=== PATIENT | female | born 2000 | race Caucasian/White ===

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

== ENCOUNTER → 2023-06-16 | Emergency (ER) | payer OTHER, SELFPAY ==
--- OUTSIDE RECORDS SUMMARY | 2023-06-16 07:50 | XMS REPORT | Continuity of Care Document ---
Author Name Unknown Address [address] [place] [address] [facility] thconnect Address [address] [place] [address] Care Team Providers Care Meeting/Event Planner Name Role Phone None, None Primary Care Physician HERO Dunaway Attending Clinician Unavailable SILVIO PLUNKETT Attending Clinician HARJINDER Killian Attending Clinician Unavailable Payers Payer Name Policy Type Policy Number Effective Date Expirati on Date Source AETNA CHOICE POS II [id number] 2005 00:00:00 [employer]ET[employer] O [id number] 2015 00:00:00 Problems Condition Name Condition Details Condition Category Status Onset Date Resolution Date Last Treatment Date Treating Clinician Comments Source No known active problems No known active problems Disease [facility] Allergies, Adverse Reactions, Alerts Allergy Name Allergy Type Status Severity Reaction(s) Onset Date Inactive Date Treating Clinician Comments Source NO KNOWN ALLERGIE S Drug Class Active [facility] Social History Social Habit Start Date Stop Date Quantity Comments Source Exposure to SARS-CoV-2 (event) 2021-08-16 00:00:00 2021-09-15 11:13:00 Not sure [facility] Tobacco use and exposure 2021-09-15 00:00:00 2021-09-15 00:00:00 Smokeless tobacco non-user [facility] Alcohol intake 2021-09-15 00:00:00 2021-09-15 00:00:00 Current drinker of alcohol (finding) [facility] Cigarette pack-years 2021-09-15 00:00:00 2021-09-15 00:00:00 [facility] Sex Assigned At 2000 00:00:00 2000 00:00:00 [facility] Smoking Status Start Date Stop Date Source Never smoked tobacco [facility] Medications Ordered Medication Name Filled Medication Name Start Date Stop Date Current Medication? Ordering Clinician Indication Dosage Frequency Signature (SIG) Comments Components Source No known medications 09-15 11:17: 42 No No known medication s [facility] Vital Signs Vital Name Observation Time Observation Value Comments S jordan Systolic blood pressure 2021-09-15 16:27:00 123 mm[Hg] [facility] Diastolic blood pressure 2021-09-15 16:27:00 86 mm[Hg] [facility] Heart rate 2021-09-15 16:27:00 80 /min [facility] Body temperature 2021-09-15 16:27:00 36.94 Rosemary [facility] Body height 2021-09-15 16:27:00 172.7 cm [facility] Body weight 2021-09-15 16:27:00 80.06 kg [facility] BMI 2021-09-15 16:27:00 26.84 kg/m2 [facility] Encounters Start Date/Time End Date/Time Encounter Type Admission Type Attending [facility] Care Facility Care Department Encounter ID Source 2021-11-01 15:33:52 Outpatient [facility] [id number] [facility] 2021-09-17 12:31:42 Outpatient [facility] [id number] [facility] 2021-09-15 10:54:29 Outpatient [facility] [id number] [facility] 2021-08-20 08:46:11 Outpatient [facility] [id number] [facility] 2021-08-19 14:05:28 Outpatient [facility] [id number] [facility] 2021-02-07 07:57:32 Emergency [facility] [id number] [facility] 2021-09-15 11:00:00 2021-09-15 12:17:22 Office Visit Hero [facility] [address] AND WOMENS [id number] [facility] 2019-10-30 16:00:00 2019-10-30 16:00:00 Outpatient SILVIO BUI [facility] [id number] [facility] 2019-06-09 12:30:00 2019-06-09 12:30:00 Outpatient SILVIO BUI [facility] [id number] [facility] 2018-11-29 08:30:00 2018-11-29 09:54:51 Outpatient HARJINDER UMAÑA [facility] [id number] [facility] 2018-11-22 14:50:00 2018-11-22 14:50:00 Outpatient SILVIO BUI [facility] [id number] [facility] Results Test Description Test Time Test Comments Results Result Co mments Source HCG Qualitative [id number] 15:29:27* Test Item Value Reference Range Interpretation Comme nts hCG Ur (test code = hCG Ur) Negative If the result is "Negative" in patients suspected to be , recommend retest with a sample obtained 48 to 72 hours later, or by ordering a quantitative assay. If the result is "Borderline" testing should be repeated in 48 to 72 hours. Lot # (test code = Lot #) [id number] Expiration Dt (test code = Expiration Dt) 01/10/2020 N Neg Control (test code = Neg Control) Negative Pos Control (test code = Pos Control) Positive Internal QC (test code = Internal QC) Acceptable HCG Qualitative [id number] 17:37:58* Test Item Value Reference Range Interpretation Comme nts hCG Ur (test code = hCG Ur) Negative If the result is "Negative" in patients suspected to be , recommend retest with a sample obtained 48 to 72 hours later, or by ordering a quantitative assay. If the result is "Borderline" testing should be repeated in 48 to 72 hours. Lot # (test code = Lot #) [id number] N Expiration Dt (test code = Expiration Dt) 11/10/2019 N Neg Control (test code = Neg Control) Negative Pos Control (test code = Pos Control) Positive Internal QC (test code = Internal QC) Acceptable
--- NOTE | 2023-06-16 08:50 | RAD REPORT ---
EXAM DESCRIPTION: RAD - Chest Pa And Lat (2 Views) - 06/16/2023 8:37 am CLINICAL HISTORY: PAIN COMPARISON: Chest Single View dated 09/15/2018; CHEST PA AND LAT 2 VIEW dated 08/24/2012 TECHNIQUE: PA and lateral views of the chest were obtained. FINDINGS: The lungs are clear. Heart size is normal and central vasculature is within normal limits. No pleural effusion or pneumothorax seen. No acute bony finding noted. IMPRESSION: No acute cardiopulmonary process.
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
[2023-06-16 09:25] VITALS: BP 108/74; TEMP 98; O2SAT 100
== END ==
LOC: ER 07:47
DX: S20.211A Contusion of right front wall of thorax, initial encounter (principal)
CPT/HCPCS: 71046; 99282

== ENCOUNTER 2023-07-18 11:09 | Emergency (ER) | payer OTHER ==
--- OUTSIDE RECORDS SUMMARY | 2023-07-18 11:11 | XMS REPORT | Continuity of Care Document ---
Author Name Unknown Address [address] [facility] [address] [id number] [facility] thconnect Address [address] [facility] [place] [address] Care Team Providers Care Wool Dyer Name Role Phone None, None Primary Care Physician HERO Dunaway Attending Clinician Unavailable SILVIO PLUNKETT Attending Clinician HARJINDER Killian Attending Clinician Unavailable Payers Payer Name Policy Type Policy Number Effective Date Expirati on Date Source AETNA CHOICE POS II [id number] 2005 00:00:00 [employer]ET[employer] HMO [id number] 2015 00:00:00 Problems Condition Name Condition Details Condition Category Status Onset Date Resolution Date Last Treatment Date Treating Clinician Comments Source No known active problems No known active problems Disease [facility] Allergies, Adverse Reactions, Alerts Allergy Name Allergy Type Status Severity Reaction(s) Onset Date Inactive Date Treating Clinician Comments Source NO KNOWN ALLERGIE S Drug Class Active [facility] Social History Social Habit Start Date Stop Date Quantity Comments Source Exposure to SARS-CoV-2 (event) 2021-08-16 00:00:00 2021-09-15 11:13:00 Not sure [facility] Tobacco use and exposure 2021-09-15 00:00:00 2021-09-15 00:00:00 Smokeless tobacco non-user [facility] Alcohol intake 2021-09-15 00:00:00 2021-09-15 00:00:00 Current drinker of alcohol (finding) [facility] Cigarette pack-years 2021-09-15 00:00:00 2021-09-15 00:00:00 [facility] Sex Assigned At 2000 00:00:2000 00:00:00 [facility] Smoking Status Start Date Stop Date Source Never smoked tobacco [facility] Medications Ordered Medication Name Filled Medication Name Start Date Stop Date Current Medication? Ordering Clinician Indication Dosage Frequency Signature (SIG) Comments Components Source No known medications 09-15 11:17: 42 No No known medication s [facility] Vital Signs Vital Name Observation Time Observation Value Comments S our Systolic blood pressure 2021-09-15 16:27:00 123 mm[Hg] [facility] Diastolic blood pressure 2021-09-15 16:27:00 86 mm[Hg] [facility] Heart rate 2021-09-15 16:27:00 80 /min [facility] Body temperature 2021-09-15 16:27:00 36.94 Rosemary [facility] Body height 2021-09-15 16:27:00 172.7 cm [facility] Body weight 2021-09-15 16:27:00 80.06 kg [facility] BMI 2021-09-15 16:27:00 26.84 kg/m2 [facility] Encounters Start Date/Time End Date/Time Encounter Type Admission Type Attending [facility] Facility Care Department Encounter ID Source 2021-11-01 15:33:[address] [facility] [id number] [facility] 2021-09-17 12:31:[address] [facility] [id number] [facility] 2021-09-15 10:54:[address] [facility] [id number] [facility] 2021-08-20 08:46:[address] [facility] [id number] [facility] 2021-08-19 14:05:[address] [facility] [id number] [facility] 2021-02-07 07:57:32 Emergency [facility] [id number] [facility] 2021-09-15 11:00:00 2021-09-15 12:17:22 Office Visit Hero Elizabeth [facility] [address] AND WOM[facility] [id number] [facility] 2019-10-30 16:00:00 2019-10-30 16:00:00 Outpatient SILVIO BUI [facility] [id number] [facility] 2019-06-09 12:30:00 2019-06-09 12:30:00 Outpatient SILVIO BUI [facility] [id number] [facility] 2018-11-29 08:30:00 2018-11-29 09:54:51 Outpatient HARJINDER UMAÑA [facility] [id number] [facility] 2018-11-22 14:50:00 2018-11-22 14:50:00 Outpatient SILVIO BUI [facility] [id number] [facility] Results Test Description Test Time Test Comments Results Result Co mments Source HCG Qualitative [id number] 15:29:27* Test Item Value Reference Range Interpretation [...] Lot # (test code = Lot #) [id number] Expiration Dt (test code = Expiration Dt) 01/10/2020 N Neg Control (test code = Neg Control) Negative Pos Control (test code = Pos Control) Positive Internal QC (test code = Internal QC) Acceptable HCG Qualitative [id number] 17:37:58* Test Item Value Reference Range Interpretation [...] Lot # (test code = Lot #) [id number] Expiration Dt (test code = Expiration Dt) 11/10/2019 N Neg Control (test code = Neg Control) Negative Pos Control (test code = Pos Control) Positive Internal QC (test code = Internal QC) Acceptable
[2023-07-18 11:35] LABS: Absolute Lymphocytes (CBC) 0.3 K/uL (0.7-4.9); Absolute Monocytes 0.4 K/uL (0.1-1.3); Absolute Neutrophil 5.3 K/uL (1.8-8.0); Basophils % 0.3 % (0-1.3); Eosinophils % 0.1 % (0-4.4); Hematocrit 40.9 % (36.0-45.0); Hemoglobin 14.4 g/dL (12.0-15.0); Lymphocytes % 5.3 % (15.3-44.8); MCH 36.1 pg (27.0-35.0); MCHC 35.1 g/dL (32.0-36.0); MCV 102.9 fL (80-100); MPV 8.1 fL (7.6-11.3); Monocytes % 6.7 % (3.3-12.3); Neutrophils % 87.6 % (41.7-73.7); Platelets 153 thou/uL (152-406); RBC Red Blood Cell Count 3.97 M/uL (3.86-4.86); Red Cell Distribution Width 12.6 % (12.1-15.2)
[2023-07-18] MEDS ORDERED: ONDANSETRON 4 MG/2 ML VIAL ONE (11:36)
[2023-07-18] MEDS ORDERED: NA CHLORIDE 0.9% 1,000 ML ONE (11:36)
[2023-07-18 11:52] LABS: Anion Gap 17.7 mEq/L (5.0-15.0); Magnesium 1.7 mg/dL (1.6-2.4); Potassium 3.7 mEq/L (3.5-5.1)
[2023-07-18 12:18] LABS: Blood Morphology Comment NOT SEEN (NOT SEEN); Platelet Estimate ADEQ; White Blood Cell Scan OK (OK)
[2023-07-18 12:25] LABS: Specific Gravity 1.026 (1.005-1.030)
[2023-07-18 12:33] LABS: Specific Gravity 1.026 (1.005-1.030); Sqamous Epithelial <5 /HPF (None Seen); Urine Bacteria <20 /HPF (<20); Urine Bilirubin NEGATIVE (Negative); Urine Blood Negative (Negative); Urine Clarity Turbid (Clear); Urine Color Yellow (Yellow); Urine Culture Reflex Order NOT NEEDED; Urine Glucose NEGATIVE (Negative); Urine Ketones 4+ (Over) (Negative); Urine Microscopic Reflex YN ORDER UMIC; Urine Mucus Slight /HPF (None Seen); Urine Nitrite NEGATIVE (Negative); Urine Protein 3+ (Negative); Urine RBC <5 /HPF (None Seen); Urine Urobilinogen 1+ (Normal); Urine WBC <5 /HPF (<5)
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
--- NOTE | 2023-07-18 13:50 | EDPHYS ---
Physician Documentation [facility] Name: Gin Corbett Age: 23 yrs Sex: Female : 2000 Arrival Date: 07/18/2023 Time: 11:09 Bed 19 Private MD: Wili Lopez B ED Physician Karthik Pfeiffer HPI: 07/17 15:43 This 23 yrs old Female presents to ER via Wheelchair with complaints of Near Syncope. kb 15:43 Patient is a 23-year-old female who presents for near syncopal episode after running a kb 5K this morning. States she is not normally a runner and did not train to run a 5K. States she tried to hydrate afterwards but became nauseous and started vomiting. Denies abdominal pain, fever. TOP LOADER: 12:22 LMP 07/18/2023, unknown tl4 Historical: - Allergies: 11:15 Iodine; nj1 - Home Meds: 12:18 None [Active]; tl4 - PMHx: 11:16 Anxiety; nj1 - PSHx: 11:15 None; nj1 - Immunization history:: Client reports receiving the 2nd dose of the Covid vaccine. - Infectious Disease History:: Denies. - Social history:: Smoking status: Patient denies any tobacco usage or history of. ROS: 15:42 Constitutional: As per HPI kb Exam: 15:42 Constitutional: This is a well developed, well nourished patient who is awake, alert, kb and in no acute distress. Head/Face: Normocephalic, atraumatic. Eyes: Pupils equal round and reactive to light, extra-ocular motions intact. Lids and lashes normal. Conjunctiva and sclera are non-icteric and not injected. Cornea within normal limits. Periorbital areas with no swelling, redness, or edema. ENT: Moist Mucous membranes Cardiovascular: Regular rate Respiratory: Respirations even and unlabored. No increased work of breathing. Talking in full sentences Abdomen/GI: Soft, non-tender. No distention Skin: Warm, dry with normal turgor. Normal color. MS/ Extremity: Pulses equal, no cyanosis. Neurovascular intact. Full, normal range of motion. Neuro: Awake and alert, GCS 15, oriented to person, place, time, and situation. Moves all extremities. Normal gait. Vital Signs: 11:13 BP 99 / 84; Pulse 111; Resp 16; Temp 98.4; Pulse Ox 100% ; Weight 46.72 kg; Height 5 nj1 ft. 8 in. ; 12:18 BP 112 / 84; Pulse 83; Resp 12; Pulse Ox 100% on R/A; Pain 0/10; tl4 13:30 BP 102 / 69; Pulse 76; Resp 14; Pulse Ox 99% on R/A; tl4 14:00 BP 111 / 79; Pulse 69; Resp 16; Temp 98.1(O); Pulse Ox 99% on R/A; Pain 0/10; tl4 11:13 Body Mass Index 15.66 (46.72 kg, 172.72 cm) nj1 12:18 Pain Scale: Adult tl4 14:00 Pain Scale: Adult tl4 [place] Coma Score: 12:21 Eye Response: spontaneous(4). Motor Response: obeys commands(6). Verbal Response: tl4 oriented(5). Total: 15. MDM: 11:14 Patient medically screened. kb 15:42 Differential Diagnosis: cardiac arrhythmia, idiopathic syncope, vasovagal episode, kb dehydration, abnormal electrolytes. Data reviewed: vital signs, nurses notes. Counseling: I had a detailed discussion with the patient and/or guardian regarding the historical points, exam findings, and any diagnostic results supporting the discharge/admit diagnosis, lab results, the need for outpatient follow up, a family practitioner, to return to the emergency department if symptoms worsen or persist or if there are any questions or concerns that arise at home. Response to treatment: the patient's symptoms have markedly improved after treatment. 07/17 11:16 Order name: Basic Metabolic Panel; Complete Time: 11:55 kb 07/17 11:16 Order name: CBC with Diff; Complete Time: 12:20 kb 07/17 11:16 Order name: Magnesium; Complete Time: 11:55 kb 07/17 11:16 Order name: Test, Urine; Complete Time: 12:26 kb 07/17 11:16 Order name: Urinalysis w/ reflexes; Complete Time: 12:40 kb 07/17 11:16 Order name: CPK; Complete Time: 11:55 kb 07/17 11:38 Order name: CBC Smear Scan; Complete Time: 12:20 EDMS 07/17 11:16 Order name: EKG; Complete Time: 11:17 kb 07/17 13:17 Order name: EKG; Complete Time: 13:18 kb 07/17 11:16 Order name: Cardiac monitoring; Complete Time: 11:30 kb 07/17 11:16 Order name: EKG - Nurse/Tech; Complete Time: 11:42 kb 07/17 11:16 Order name: IV Saline Lock; Complete Time: 11:30 kb 07/17 11:16 Order name: Labs collected and sent; Complete Time: 11:30 kb 07/17 13:17 Order name: EKG - Nurse/Tech; Complete Time: 13:40 kb Administered Medications: 11:42 Drug: NS 0.9% IV 1000 ml IV at 1000 ml once Route: IV; Rate: 1000 ml; Site: right hb antecubital; 13:30 Follow up: Response: No adverse reaction; IV Status: Completed infusion; IV Intake: tl4 1000ml 11:42 Drug: Ondansetron IVP 4 mg IVP once; over 2 minutes Route: IVP; Site: right antecubital;hb 13:29 Follow up: Response: No adverse reaction tl4 Disposition Summary: 07/18/23 13:49 Discharge Ordered Notes: Location: Home kb Condition: Stable kb Diagnosis - Syncope Near kb Followup: kb - With: Emergency Department - When: As needed - Reason: Worsening of condition Followup: kb - With: Private Physician - When: 2 - 3 days - Reason: Recheck today's complaints, Continuance of care, Re-evaluation by your physician Discharge Instructions: - Discharge Summary Sheet kb - Near-Syncope, [id number] kb Forms: - Medication Reconciliation Form kb - Thank You Letter kb - Antibiotic Education kb - Prescription Opioid Use kb - Patient Portal Instructions kb - Leadership Thank You Letter kb Signatures: Dispatcher [employer] Nidhi Dixon, EDYTA FLOREZP-Kandy Brown RN FREDDY Linda Bear RN RN nj1 Ajith Muñoz RN RN tl4 Corrections: (The following items were deleted from the chart) 11:16 11:15 Allergies: No Known Allergies; nj1 nj1 11:16 11:15 PMHx: None; nj1 nj1
[2023-07-18 17:19] VITALS: BP 111/79; TEMP 97.6; O2SAT 100
--- NOTE | 2023-07-19 12:43 | EKG ---
Test Date: 2023-07-18 Test Time: 11:45:38 Computational Geneticist: DAWIT MEASUREMENT RESULTS: Intervals: Rate: 72 LA: 110 QRSD: 76 QT: 378 QTc: 413 Tina: P: 63 LA: 110 QRS: 82 T: 74 INTERPRETIVE STATEMENTS: Normal sinus rhythm Otherwise normal ECG Electronically Signed On 07-19-23 12:40:54 CDT by Isra Arteaga
--- NOTE | 2023-07-19 12:43 | EKG ---
Test Date: 2023-07-18 Test Time: 13:38:08 Automatic Silk Screen Printer: TL MEASUREMENT RESULTS: Intervals: Rate: 75 NH: 126 QRSD: 76 QT: 392 QTc: 437 [place]: P: 46 NH: 126 QRS: 45 T: 45 INTERPRETIVE STATEMENTS: Normal sinus rhythm Low voltage QRS Borderline ECG Compared to ECG 07/18/2023 11:45:38 Low QRS voltage now present Electronically Signed On 07-19-23 12:40:32 CDT by Isra Arteaga
== END 2023-07-18 14:01 | disposition home or self-care (01) ==
LOC: ER 11:09
DX: R55 Syncope and collapse (principal); Z91.048 Other nonmedicinal substance allergy status
CPT/HCPCS: 96361; 93005 ×2; 85025; 81001; 80048; 36415; 83735; 82550; 81025; 96374; 99285; J2405; J7030

== ENCOUNTER 2023-12-27 14:31 | Emergency (ER) | payer OTHER ==
--- OUTSIDE RECORDS SUMMARY | 2023-12-27 14:33 | XMS REPORT | Continuity of Care Document ---
Author Name Unknown Address [address] [facility] [address] [facility] [address] [place] [id number] [facility] thconnect Address [address] [place] [address] Care Team Providers Care Rotary Drum Dyer Name Role Phone None, None Primary Care Physician HERO Dunaway Attending Clinician Unavailable SILVIO PLUNKETT Attending Clinician HARJINDER Killian Attending Clinician Unavailable Payers Payer Name Policy Type Policy Number Effective Date Expirati on Date Source AETNA CHOICE POS II [id number] 2005 00:00:00 [employer]ET[employer] HMO [id number] 2015 00:00:00 Problems Condition Name Condition Details Condition Category Status Onset Date Resolution Date Last Treatment Date Treating Clinician Comments Source No known active problems No known active problems Disease [facility] Allergies, Adverse Reactions, Alerts Allergy Name Allergy Type Status Severity Reaction(s) Onset Date Inactive Date Treating Clinician Comments Source NO KNOWN ALLERGIE S Drug Class Active [facility] Social History Social Habit Start Date Stop Date Quantity Comments Source Exposure to SARS-CoV-2 (event) 2021-08-16 00:00:00 2021-09-15 11:13:00 Not sure [facility] Tobacco use and exposure 2021-09-15 00:00:00 2021-09-15 00:00:00 Smokeless tobacco non-user [facility] Alcohol intake 2021-09-15 00:00:00 2021-09-15 00:00:00 Current drinker of alcohol (finding) [facility] Cigarette pack-years 2021-09-15 00:00:00 2021-09-15 00:00:00 [facility] Sex Assigned At 2000 00:00:00 2000 00:00:00 [facility] Smoking Status Start Date Stop Date Source Never smoked tobacco [facility] Medications Ordered Medication Name Filled Medication Name Start Date Stop Date Current Medication? Ordering Clinician Indication Dosage Frequency Signature (SIG) Comments Components Source No known medications 09-15 11:17: 42 No No known medication s [facility] Vital Signs Vital Name Observation Time Observation Value Comments S our Systolic blood pressure 2021-09-15 16:27:00 123 mm[Hg] [facility] Diastolic blood pressure 2021-09-15 16:27:00 86 mm[Hg] [facility] Heart rate 2021-09-15 16:27:00 80 /min [facility] Body temperature 2021-09-15 16:27:00 36.94 Rosemary [facility] Body height 2021-09-15 16:27:00 172.7 cm [facility] Body weight 2021-09-15 16:27:00 80.06 kg [facility] BMI 2021-09-15 16:27:00 26.84 kg/m2 [facility] Encounters Start Date/Time End Date/Time Encounter Type Admission Type Attending [facility] Facility Care Department Encounter ID Source 2021-11-01 15:33:52 Outpatient HERO ELIZABETH [facility] [id number] [facility] 2021-09-17 12:31:42 Outpatient HERO ELIZABETH [facility] [id number] [facility] 2021-09-15 10:54:29 Outpatient HERO ELIZABETH [facility] [id number] [facility] 2021-08-20 08:46:11 Outpatient HERO ELIZABETH [facility] [id number] [facility] 2021-08-19 14:05:28 Outpatient [facility] [id number] [facility] 2021-02-07 07:57:32 Emergency [facility] [id number] [facility] 2021-09-15 11:00:00 2021-09-15 12:17:22 Office Visit Hero Elizabeth [facility] [address] AND WOMENS [id number] [facility] 2019-10-30 16:00:00 2019-10-30 16:00:00 Outpatient SILVIO BUI [facility] [id number] [facility] 2019-06-09 12:30:00 2019-06-09 12:30:00 Outpatient SILVIO BUI [facility] [id number] [facility] 2018-11-29 08:30:00 2018-11-29 09:54:51 Outpatient HARJINDER UMAÑA [facility] [id number] [facility] 2018-11-22 14:50:00 2018-11-22 14:50:00 Outpatient SILVIO BUI [facility] [id number] [facility] Results Test Description Test Time Test Comments Results Result Co mments Source HCG Qualitative [id number] 15:29:27* Test Item Value Reference Range Interpretation [...] Lot # (test code = Lot #) [id number] N Expiration Dt (test code = Expiration Dt) 01/10/2020 N Neg Control (test code = Neg Control) Negative Pos Control (test code = Pos Control) Positive Internal QC (test code = Internal QC) Acceptable HCG Qualitative [id number] 17:37:58* Test Item Value Reference Range Interpretation [...] Lot # (test code = Lot #) [id number] N Expiration Dt (test code = Expiration Dt) 11/10/2019 N Neg Control (test code = Neg Control) Negative Pos Control (test code = Pos Control) Positive Internal QC (test code = Internal QC) Acceptable
[2023-12-27] MEDS ORDERED: ONDANSETRON 4 MG/2 ML VIAL ONE (15:09)
[2023-12-27] MEDS ORDERED: NA CHLORIDE 0.9% 1,000 ML ONE ×2 (15:10→16:59)
[2023-12-27] MEDS ORDERED: FENTANYL CITR 100 MCG/2 ML ONE ×2 (15:10→16:59)
[2023-12-27 15:44] LABS: Absolute Basophils 0.1 K/uL (0-0.5); Absolute Eosinophils 0.1 K/uL (0-0.5); Absolute Lymphocytes (CBC) 1.3 K/uL (0.7-4.9); Absolute Monocytes 0.8 K/uL (0.1-1.3); Absolute Neutrophil 4.8 K/uL (1.8-8.0); Basophils % 1.7 % (0-1.3); Eosinophils % 1.1 % (0-4.4); Hematocrit 29.6 % (36.0-45.0); Hemoglobin 10.1 g/dL (12.0-15.0); MCH 36.8 pg (27.0-35.0); MCHC 34.2 g/dL (32.0-36.0); MCV 107.6 fL (80-100); MPV 8.8 fL (7.6-11.3); Monocytes % 10.9 % (3.3-12.3); Neutrophils % 68.3 % (41.7-73.7); Platelets 114 thou/uL (152-406); RBC Red Blood Cell Count 2.75 M/uL (3.86-4.86); Red Cell Distribution Width 14.4 % (12.1-15.2)
[2023-12-27 15:51] LABS: PT Prothrombin Time 19.1 SECONDS (9.4-12.5); PTT, Activated Partial Thromb 33.2 SECONDS (24.3-36.9); Protime INR 1.73
[2023-12-27 16:00] LABS: Albumin 2.4 g/dL (3.4-5.0); Albumin/Globulin Ratio 0.6 (1.1-1.8); Anion Gap 10.6 mEq/L (5.0-15.0); Globulin 4.2 g/dL (2.3-3.5); Protein, Total 6.6 g/dL (6.4-8.2)
[2023-12-27 16:02] LABS: Potassium 2.6 mEq/L (3.5-5.1)
[2023-12-27 16:40] LABS: Specific Gravity 1.028 (1.005-1.030)
[2023-12-27 16:41] LABS: Specific Gravity 1.028 (1.005-1.030); Urine Bacteria <20 /HPF (<20); Urine Bilirubin 2+ (Negative); Urine Blood Negative (Negative); Urine Clarity Extremely Turbid (Clear); Urine Color Dark-Yellow (Yellow); Urine Crystals Unidentified Few /HPF (None Seen); Urine Culture Reflex Order REFLEXED; Urine Glucose TRACE (Negative); Urine Ketones TRACE (Negative); Urine Microscopic Reflex YN ORDER UMIC; Urine Mucus 4+ /HPF (None Seen); Urine Nitrite 2+ (Negative); Urine Protein 1+ (Negative); Urine Urobilinogen 4+ (Over) (Normal); Urine WBC >50 /HPF (<5); Urine WBC Clump Rare /HPF (None Seen); Urine Yeast (Budding) Trace /HPF (None Seen); Urine pH 7.5 (5.0-7.0)
[2023-12-27 17:40] LABS: White Blood Cell Scan OK (OK)
[2023-12-27 17:41] LABS: Blood Morphology Comment NOTED (NOT SEEN); Macrocytosis SLIGHT; Platelet Estimate DECR; Polychromasia SLIGHT
[2023-12-27] MEDS ORDERED: MORPHINE 4 MG/ML SYR ONE ×2 (18:15→21:58)
--- NOTE | 2023-12-27 18:29 | RAD REPORT ---
EXAMINATION: CT ABDOMEN AND PELVIS WITHOUT CONTRAST CLINICAL INDICATION: Female, 23 years old. [facility] MAIN ABD PAIN NO CONTRAST Bed Name: 17 TECHNIQUE: CT abdomen and pelvis was performed, without IV contrast, as per department protocol. Axia l, sagittal and coronal reconstructions were obtained. One or more of the following dose reduction techniques were used: Automated exposure control, adjustment of the mA and kV according to the patien t size, and iterative reconstruction. Unless otherwise specified, incidental findings do not require dedicated imaging follow-up. COMPARISON: CT chest 09/15/2018. FINDINGS: The lack of intravenous contrast limits the sensitivity of this exam for evaluation of solid visceral organs, vascular structures, and retroperitoneum. LOWER CHEST: The visualized lung bases are clear. LIVER: Subjective hepatomegaly. Diffuse parenchymal pronounced hypoattenuation, sparing the central a spects of the liver, suggesting severe steatosis with areas of focal fatty sparing. No focal lesion. Gallbladder is moderately distended. Nonspecific fluid throughout the retroperitoneum, may relate to third spacing, and limits evaluation for focal abnormalities of the pancreas. SPLEEN: Normal size. No focal lesion. PANCREAS: No mass, ductal dilation, or other focal findings ADRENALS: Normal; no mass. KIDNEYS AND URETERS: Normal size and contour. No hydronephrosis. URINARY BLADDER: Decompression of the urinary bladder limits evaluation. GASTROINTESTINAL TRACT: No evidence of bowel obstruction, or localized fluid collection. No free air. Moderate to large volume free ascites.. APPENDIX: Normal appendix. LYMPH NODES: No lymphadenopathy. MUSCULOSKELETAL: No acute or suspicious osseous abnormality. ADDITIONAL FINDINGS: IUD in place. IMPRESSION: Subjective hepatomegaly with nearly diffuse pronounced parenchymal hypoattenuation suggesting steatos is. Geographic central regions of fatty sparing. Moderate to large volume of free ascites. Nonspecific edema/fluid throughout the retroperitoneum, may relate to third spacing, please correlate for intravascular volume abnormalities.
[2023-12-27] MEDS ORDERED: CEFTRIAXONE 1000 MG/VIAL ONE (19:23)
[2023-12-27] MEDS ORDERED: POTASSIUM 25 MEQ EFFERV TAB ONE (19:23)
--- NOTE | 2023-12-27 20:06 | RAD REPORT ---
EXAMINATION: Abdomen Exam Limited CLINICAL HISTORY: HS MAIN N ABD PAIN Bed Name: 17 COMPARISON: CT abdomen pelvis of earlier the same day FINDINGS: Gallbladder: Moderate distention. Wall is not significantly thickened, up to 1 mm. Mild layering slud ge. No gallstones. Mild pericholecystic fluid, likely a component of more diffuse ascites. Positive sonographic Ortiz's sign. Bile ducts: No intrahepatic or extrahepatic biliary dilatation. Common bile duct measures 3 mm. Liver: Visualized portions of the liver demonstrate diffuse parenchymal echogenicity suggesting steat osis. Fluid: Mild to moderate free ascites. IMPRESSION: Moderate gallbladder distention with positive sonographic Ortiz sign, may suggest acute cholecystiti s in the appropriate clinical setting. Mild layering sludge. Diffuse hepatic parenchymal hyperechogenicity suggesting steatosis. Mild to moderate free ascites.
[2023-12-27 21:39] LABS: Hepatitis B Core IgM Nonreactive (Nonreactive); Hepatitis B surface AG Interp. Nonreactive (Nonreactive); Hepatitis C Virus Ab Nonreactive (Nonreactive)
[2023-12-27 21:40] LABS: HBsAG Nonreactive Report Report
[2023-12-27] MEDS ORDERED: METOCLOPRAMIDE 10 MG/2mL INJ ONE (21:57)
[2023-12-27] MEDS ORDERED: ALBUMIN HUMAN 25% 100 ML IV ONE (21:58)
[2023-12-27] MEDS ORDERED: METRONIDAZOLE 500mg IVPB 500 MG/100 ML BAG IV ONE (22:34)
--- NOTE | 2023-12-27 22:37 | EDPHYS ---
Physician Documentation [facility] Name: Gin Corbett Age: 23 yrs Sex: Female : 2000 Arrival Date: 12/27/2023 Time: 14:31 Bed 17 Private MD: ED Physician Edmundo Smalls HPI: 12/26 14:47 This 23 yrs old Female presents to ER via Ambulatory with complaints of abdominal pain. sb4 14:47 The patient presents with abdominal pain in the lower abdomen, in the right upper sb4 quadrant. Onset: The symptoms/episode began/occurred yesterday. The symptoms do not radiate. Associated signs and symptoms: Pertinent positives: nausea and vomiting, constipation. 14:54 Patient states that she thought she had what was a stomach bug last week with nausea sb4 and vomiting. States that that got better but slowly her abdomen has become more swollen. She states that she has still continued to have some nausea and vomiting as well as abdominal pain. Historical: - Allergies: 14:41 Iodine; cm10 - PMHx: 14:41 Anxiety; Elevated liver enzymes; cm10 - Immunization history:: Adult Immunizations up to date. - Infectious Disease History:: Denies. - Social history:: Smoking status: Reported history of juuling and/or vaping. ROS: 14:54 Constitutional: Negative for fever, chills, and weight loss, sb4 14:54 Abdomen/GI: Positive for abdominal pain, nausea and vomiting, abdominal distension, 14:54 All other systems are negative, Exam: 14:54 Constitutional: This is a well developed, well nourished patient who is awake, alert, sb4 and in no acute distress. Head/Face: Normocephalic, atraumatic. ENT: Mucous membranes moist. Cardiovascular: Regular rate and rhythm with a normal S1 and S2. Respiratory: Lungs have equal breath sounds bilaterally, clear to auscultation and percussion. No rales, rhonchi or wheezes noted. No increased work of breathing, no retractions or nasal flaring. Skin: Warm, dry with normal turgor. Normal color with no rashes, no lesions, and no evidence of cellulitis. 14:54 Eyes: Sclera: icterus, is present, 14:54 Abdomen/GI: Inspection: abdomen appears normal, Bowel sounds: normal, Palpation: soft, moderate abdominal tenderness, in the right upper quadrant, right lower quadrant and left lower quadrant, Vital Signs: 14:40 BP 106 / 84; Pulse 106; Resp 19; Temp 98.6; Pulse Ox 99% ; Weight 42.18 kg; Height 5 cm10 ft. 8 in. ; Pain 8/10; 15:01 BP 101 / 69; Pulse 81; Resp 17; Pulse Ox 99% on R/A; rs5 16:48 BP 110 / 74; Pulse 84; Resp 17; Pulse Ox 99% on R/A; rs5 19:15 BP 104 / 69; Pulse 77; Resp 18; Temp 98; Pulse Ox 100% on R/A; kj2 21:10 BP 98 / 72; Pulse 73; Resp 18; Pulse Ox 100% on R/A; kj2 22:46 BP 99 / 64; Pulse 92; Resp 16; Pulse Ox 100% on R/A; kj2 12/27 00:13 BP 100 / 71; Pulse 75; Pulse Ox 100% on R/A; kj2 00:48 BP 100 / 71; Pulse 84; Resp 18; Pulse Ox 100% on R/A; kj2 02:45 BP 100 / 69; Pulse 79; Resp 18; Temp 98; Pulse Ox 100% on R/A; kj2 12/26 14:40 Body Mass Index 14.14 (42.18 kg, 172.72 cm) cm10 12/26 14:40 Pain Scale: Adult cm10 MDM: 12/26 14:42 Patient medically screened. sb4 18:36 Post IV fluid administration reassessment for Sepsis: Client prescribed 30 mL/kg IVF. sb4 Sepsis focused reassessment complete. ED course: patient reports history of elevated LFTs, do not believe that tbili of 3 or lactate of 5.7 is secondary to infection. she does have a UTI. 30 cc/kg fluids administered as well as antibiotics after to blood cultures obtained. 19:01 ED course: Discussed lab and CT findings with patient. She states that was initially sb4 told she had some scarring in her liver and elevated LFTs about 5 months ago and the plan was just to monitor her symptoms. Her medical team believes that this is secondary to prior anorexia and alcohol abuse. 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 19:25 Data reviewed: vital signs, nurses notes, lab test result(s), radiologic studies, I sb4 have discussed the patient's presentation/case with the attending Emergency Department Physician;. Historians other than the Patient: Spouse/Significant Other: . Parent: mother. Counseling: I had a detailed discussion with the patient and/or guardian regarding the historical points, exam findings, and any diagnostic results supporting the discharge/admit diagnosis, lab results, radiology results. 22:32 Differential Diagnosis altered mental status, sepsis, flu. ED course: EXAMINATION: sp4 Abdomen Exam Limited CLINICAL HISTORY: [facility] MAIN N ABD PAIN Bed Name: 17 COMPARISON: CT abdomen pelvis of earlier the same day FINDINGS: Gallbladder: Moderate distention. Wall is not significantly thickened, up to 1 mm. Mild layering sludge. No gallstones. Mild pericholecystic fluid, likely a component of more diffuse ascites. Positive sonographic Ortiz's sign. Bile ducts: No intrahepatic or extrahepatic biliary dilatation. Common bile duct measures 3 mm. Liver: Visualized portions of the liver demonstrate diffuse parenchymal echogenicity suggesting steatosis. Fluid: Mild to moderate free ascites. IMPRESSION: Moderate gallbladder distention with positive sonographic Ortiz sign, may suggest acute cholecystitis in the appropriate clinical setting. Mild layering sludge. Diffuse hepatic parenchymal hyperechogenicity suggesting steatosis. Mild to moderate free ascites. Reported By: Azar Caba. 22:33 ED course: US - IMPRESSION: Moderate gallbladder distention with positive sonographic sp4 Ortiz sign, may suggest acute cholecystitis in the appropriate clinical setting. Mild layering sludge. Diffuse hepatic parenchymal hyperechogenicity suggesting steatosis. Mild to moderate free ascites.. ED course: EXAMINATION: CTABDOMEN AND PELVIS WITHOUT CONTRAST CLINICAL INDICATION: Female, 23 years old. [facility] MAIN ABD PAIN NO CONTRAST Bed Name: 17 TECHNIQUE: CT abdomen and pelvis was performed, without IV contrast, as per department protocol. Axial, sagittal and coronal reconstructions were obtained. One or more of the following dose reduction techniques were used: Automated exposure control, adjustment of the mA and kV according to the patient size, and iterative reconstruction. Unless otherwise specified, incidental findings do not require dedicated imaging follow-up. COMPARISON: CT chest 09/15/2018. FINDINGS: The lack of intravenous contrast limits the sensitivity of this exam for evaluation of solid visceral organs, vascular structures, and retroperitoneum. LOWER CHEST: The visualized lung bases are clear. LIVER: Subjective hepatomegaly. Diffuse parenchymal pronounced hypoattenuation, sparing the central aspects of the liver, suggesting severe steatosis with areas of focal fatty sparing. No focal lesion. Gallbladder is moderately distended. Nonspecific fluid throughout the retroperitoneum, may relate to third spacing, and limits evaluation for focal abnormalities of the pancreas. SPLEEN: Normal size. No focal lesion. PANCREAS: No mass, ductal dilation, or other focal findings ADRENALS: Normal; no mass. KIDNEYS AND URETERS: Normal size and contour. No hydronephrosis. URINARYBLADDER: Decompression of the urinary bladder limits evaluation. GASTROINTESTINAL TRACT: No evidence of bowel obstruction, or localized fluid collection. No free air. Moderate to large volume free ascites.. APPENDIX: Normal appendix. LYMPH NODES: No lymphadenopathy. MUSCULOSKELETAL: No acute or suspicious osseous abnormality. ADDITIONAL FINDINGS: IUD in place. IMPRESSION: Subjective hepatomegaly with nearly diffuse pronounced parenchymal hypoattenuation suggesting steatosis. Geographic central regions of fatty sparing. Moderate to large volume of free ascites. Nonspecific edema/fluid throughout the retroperitoneum, may relate to third spacing, please correlate for intravascular volume abnormalities. . 12/26 14:46 Order name: Blood Culture Adult (2) sb4 12/26 14:46 Order name: CBC with Diff; Complete Time: 17:42 [facility] 12/26 14:46 Order name: CMP; Complete Time: 16:03 4 12/26 14:46 Order name: Lactate w/ 2H reflex if indic.; Complete Time: 16:03 [facility] 12/26 14:46 Order name: Protime (+inr); Complete Time: 15:53 sb4 12/26 14:46 Order name: Ptt, Activated; Complete Time: 15:53 sb4 12/26 14:46 Order name: Urinalysis w/ reflexes; Complete Time: 16:43 sb4 12/26 14:46 Order name: Test, Urine; Complete Time: 16:40 sb4 12/26 14:46 Order name: Lipase; Complete Time: 16:03 4 12/26 16:45 Order name: Urine Culture EDID 12/26 17:41 Order name: CBC Smear Scan; Complete Time: 17:42 EDMS 12/26 17:43 Order name: Lactate w/ 2H reflex if indic.; Complete Time: 18:40 sb4 12/26 18:03 Order name: Ghost Lactate-NO COLLECT Timer; Complete Time: 18:10 EDMS 12/26 19:21 Order name: Hepatitis Panel; Complete Time: 22:16 sb4 12/26 20:40 Order name: Ghost Lactate-NO COLLECT Timer; Complete Time: 20:41 EDMS 12/26 16:02 Order name: CT Abd/Pelvis - Without Contrast; Complete Time: 18:31 sb4 12/26 19:17 Order name: Abdomen Limited US; Complete Time: 20:08 sb4 12/26 14:46 Order name: Cardiac monitoring; Complete Time: 15:44 sb4 12/26 14:46 Order name: IV Saline Lock - Large Bore; Complete Time: 15:44 sb4 12/26 14:46 Order name: Labs collected and sent; Complete Time: 15:44 sb4 12/26 14:46 Order name: O2 Per Protocol; Complete Time: 15:44 sb4 12/26 14:46 Order name: O2 Sat Monitoring; Complete Time: 15:44 sb4 12/26 14:46 Order name: Vital Signs; Complete Time: 15:44 sb4 Administered Medications: 14:55 Drug: Ondansetron IVP 4 mg IVP once; over 2 minutes Route: IVP; Site: right antecubital;rs5 15:22 Follow up: Response: No adverse reaction; Nausea is decreased rs5 15:44 Drug: NS 0.9% IV 1000 ml IV at 1 bolus Per protocol; 1000 mL bolus Route: IV; Rate: 1 rs5 bolus; Site: right antecubital; 16:56 Follow up: Response: No adverse reaction; IV Status: Completed infusion rs5 15:44 Drug: fentaNYL (PF) IVP 25 mcg IVP once Route: IVP; Site: right antecubital; rs5 16:01 Follow up: Response: No adverse reaction; Pain is decreased rs5 17:04 Drug: fentaNYL (PF) IVP 25 mcg IVP once Route: IVP; Site: right antecubital; rs5 19:14 Follow up: Response: No adverse reaction kj2 17:05 Drug: NS 0.9% IV 1000 ml IV at 1 bolus Per protocol; 1000 mL bolus Route: IV; Rate: 1 rs5 bolus; Site: right antecubital; 18:12 Drug: morphine IVP or IV 4 mg IVP once over 4 mins Route: IVP; Infused Over: 4 mins; rs5 Site: right antecubital; 19:14 Follow up: Response: No adverse reaction; Pain is decreased kj2 19:56 Drug: Rocephin IV 1 grams IV at calculated rate once; Given slow IV push per pharmacy kj2 instructions Route: IV; Rate: calculated rate; Site: right antecubital; 19:56 Drug: Potassium PO Effervescent Tablet 50 mEq PO once; dissolve in 4 ounces of water or kj2 juice Route: PO; 22:45 Follow up: Response: No adverse reaction kj2 22:23 Drug: Albumin IVPB 25 grams 100 ml IVPB once; (Note: Albumin 25% concentration) Volume: kj2 100 ml; Route: IVPB; Site: right antecubital; 22:44 Follow up: Response: No adverse reaction kj2 22:23 Drug: Albumin IVPB 25 grams 100 ml IVPB once; (Note: Albumin 25% concentration) Volume: kj2 100 ml; Route: IVPB; Site: right antecubital; 22:24 Drug: morphine IVP or IV 4 mg IVP once over 4 mins Route: IVP; Infused Over: 4 mins; kj2 Site: right antecubital; 22:45 Follow up: Response: No adverse reaction; Pain is decreased kj2 22:24 Drug: metoCLOPramide IVP 10 mg IVP once; over 1 to 2 minutes Route: IVP; Site: right kj2 antecubital; 22:44 Follow up: Response: No adverse reaction kj2 22:43 Drug: metroNIDAZOLE IVPB 500 mg 100 ml IVPB at 200 ml/hr once over 30 mins Volume: 100 kj2 ml; Route: IVPB; Rate: 200 ml/hr; Infused Over: 30 mins; Site: right antecubital; 23:32 Not Given (Physician Discretion): ns 0.45 % with kcl40 meq/l 1000 ml IV at 100 ml/hr ss once 12/27 00:00 Drug: NS 0.9% with KCl IV 20 mEq/L 1000 ml IV at 100 ml/hr continuous Route: IV; Rate: kj2 100 ml/hr; Site: right antecubital; 00:49 Drug: morphine IVP or IV 2 mg IVP once over 4 mins Route: IVP; Infused Over: 4 mins; kj2 Site: right antecubital; 02:33 Follow up: Response: No adverse reaction kj2 02:39 Follow up: Response: No adverse reaction; Pain is decreased kj2 02:50 Drug: morphine IVP or IV 4 mg IVP once over 4 mins Route: IVP; Infused Over: 4 mins; kj2 Site: right antecubital; 07:31 Follow up: Response: No adverse reaction; Medication Administered at Departure kj2 Disposition: 12/26 20:17 Co-signature as Attending Physician, Constanza Quintana MD I agree with the assessment and gb1 plan of care. I reviewed the patient's care provided by Advanced Practice Provider \T\ agree w/ the diagnosis \T\ care plan. I personally saw the pt \T\ performed a substantive portion of the visit, incldng all aspects of the (History/Exam/Medical Decision Making). Disposition Summary: 12/27/23 22:35 Transfer Ordered Notes: Transfer Location: [facility] sp4 Reason: Higher level of care sp4 Condition: Stable sp4 Problem: new sp4 Symptoms: have improved sp4 Accepting Physician: [facility] Attending MD (12/28/23 02:52) kj2 Diagnosis - Acute liver failure, acute hyperbilirubinemia, acute hypokalemia, distended sp4 gallbladder , acute cholecystitis , moderate ascites with abdominal distention Forms: - Medication Reconciliation Form sp4 - SBAR form sp4 Signatures: Dispatcher [employer] EDMS Carola Flynn RN RN ss Brown, Sophia, PA-C PAAbelC sb4 Сергей Aldana RN RN rs5 Edmundo Smalls MD MD sp4 Eunice Lopez RN RN cm10 Constanza Quintana MD MD gb1 Sanaz Brown RN RN kj2 Corrections: (The following items were deleted from the chart) 14:47 14:47 BLOOD CULTURE*+BA.LAB.BRZ ordered. EDMS EDMS 14:47 14:47 CBC+H.LAB.BRZ ordered. EDMS EDMS 14:47 14:47 COMPREHENSIVE METABOLIC PANEL+C.LAB.BRZ ordered. EDMS EDMS 14:47 14:47 LACTATE+C.LAB.BRZ ordered. EDMS EDMS 14:47 14:47 PROTIME (+INR)+COAG.LAB.BRZ ordered. EDMS EDMS 14:47 14:47 PTT, ACTIVATED+COAG.LAB.BRZ ordered. EDMS EDMS 14:47 14:47 Urinalysis+U.LAB.BRZ ordered. EDMS EDMS 14:47 14:47 Test, Urine+UC.LAB.BRZ ordered. EDMS EDMS 14:47 14:47 LIPASE+C.LAB.BRZ ordered. EDMS EDMS 16:02 16:02 Abdomen Pelvis Wo Con+CT.RAD.BRZ ordered. EDMS EDMS 12/27 02:52 12/26 22:35 [facility] Attending sp4 kj2
--- NOTE | 2023-12-27 22:37 | ER ---
Nurse's Notes [facility] Name: Gin Corbett Age: 23 yrs Sex: Female : 2000 Arrival Date: 12/27/2023 Time: 14:31 Bed 17 Private MD: Diagnosis: Acute liver failure, acute hyperbilirubinemia, acute hypokalemia, distended gallbladder , acute cholecystitis , moderate ascites with abdominal distention Presentation: 12/26 14:40 Chief complaint: Patient states: Right sided abdominal pain onset Wednesday. Pt rates the cm10 pain an 8/10 and describes the pain as sharp. Pt also reports vomiting. Pt has noted yellowing to her scleras. Coronavirus screen: Client denies travel out of the [place] in the last 14 days. At this time, the client does not indicate any symptoms associated with coronavirus-19. Ebola Screen: Patient denies travel to an Ebola-affected area in the 21 days before illness onset. No symptoms or risks identified at this time. Initial Sepsis Screen: Does the patient meet any 2 criteria? HR > 90 bpm. Does the patient have a suspected source of infection? No. Patient's initial sepsis screen is negative. Risk Assessment: Do you want to hurt yourself or someone else? Patient reports no desire to harm self or others. Onset of symptoms was December 27, 2023. 14:40 Method Of Arrival: Ambulatory cm10 14:40 Acuity: REYNALDO 3 cm10 Triage Assessment: 14:42 General: Appears in no apparent distress. comfortable, Behavior is calm, cooperative. cm10 Pain: Complains of pain in right upper quadrant and right lower quadrant Pain does not radiate. Pain currently is 8 out of 10 on a pain scale. Quality of pain is described as sharp. EENT: Sclera/Cornea Yellowing. Neuro: No deficits noted. Level of Consciousness is awake, alert, obeys commands, Oriented to person, place, time, situation, Appropriate for age. Respiratory: No deficits noted. Airway is patent Respiratory effort is even, unlabored, Respiratory pattern is regular, symmetrical. Historical: - Allergies: 14:41 Iodine; cm10 - PMHx: 14:41 Anxiety; Elevated liver enzymes; cm10 - Immunization history:: Adult Immunizations up to date. - Infectious Disease History:: Denies. - Social history:: Smoking status: Reported history of juuling and/or vaping. Screenin:45 [facility] ED Fall Risk Assessment (Adult) History of falling in the last 3 months, rs5 including since admission No falls in past 3 months (0 pts) Confusion or Disorientation No (0 pts) Intoxicated or Sedated No (0 pts) Impaired Gait No (0 pts) Mobility Assist Device Used No (0 pt) Altered Elimination No (0 pt) Score/Fall Risk Level 0 - 2 = Low Risk Oriented to surroundings, Maintained a safe environment. Abuse screen: Denies threats or abuse. Nutritional screening: No deficits noted. Tuberculosis screening: No symptoms or risk factors identified. Assessment: 14:45 General: Appears in no apparent distress. uncomfortable, Behavior is calm, cooperative. rs5 Pain: Complains of pain in abdomen Pain currently is 8 out of 10 on a pain scale. Quality of pain is described as aching, Is continuous. Neuro: Level of Consciousness is awake, alert, obeys commands, Oriented to person, place, time, situation. Cardiovascular: Patient's skin is warm and dry. Respiratory: Airway is patent Respiratory effort is even, unlabored, Respiratory pattern is regular, symmetrical. GI: Abdomen is round non-distended, Abd is soft and non tender X 4 quads. : No signs and/or symptoms were reported regarding the genitourinary system. EENT: No signs and/or symptoms were reported regarding the EENT system. Derm: Skin is intact, Skin is pink, warm \T\ dry. Musculoskeletal: Range of motion: intact in all extremities. 16:01 Reassessment: Patient and/or family updated on plan of care and expected duration. Pain rs5 level reassessed. Patient is alert, oriented x 3, equal unlabored respirations, skin warm/dry/pink. Patient states feeling better. 16:44 Pain: Complains of pain in abdomen Pain currently is 8 out of 10 on a pain scale. rs5 Quality of pain is described as aching, Is continuous. 16:44 Reassessment: Patient and/or family updated on plan of care and expected duration. Pain rs5 level reassessed. Patient is alert, oriented x 3, equal unlabored respirations, skin warm/dry/pink. 16:45 Reassessment: provider notified pt is experiencing pain . rs5 17:10 Reassessment: Patient and/or family updated on plan of care and expected duration. Pain rs5 level reassessed. Patient is alert, oriented x 3, equal unlabored respirations, skin warm/dry/pink. 18:01 Pain: Complains of pain in abdomen Pain currently is 8 out of 10 on a pain scale. rs5 Quality of pain is described as aching, Is continuous. 18:01 Reassessment: provider notified pt is experiencing pain. rs5 18:49 Reassessment: Patient and/or family updated on plan of care and expected duration. Pain rs5 level reassessed. Patient is alert, oriented x 3, equal unlabored respirations, skin warm/dry/pink. Patient denies pain at this time. Patient states feeling better. 19:15 Reassessment: Patient appears in no apparent distress at this time. Patient and/or kj2 family updated on plan of care and expected duration. Pain level reassessed. Patient is alert, oriented x 3, equal unlabored respirations, skin warm/dry/pink. 21:20 Reassessment: Patient appears in no apparent distress at this time. Patient and/or kj2 family updated on plan of care and expected duration. Pain level reassessed. Patient is alert, oriented x 3, equal unlabored respirations, skin warm/dry/pink. 12/27 00:13 Reassessment: Patient appears in no apparent distress at this time. Patient and/or kj2 family updated on plan of care and expected duration. Pain level reassessed. Patient is alert, oriented x 3, equal unlabored respirations, skin warm/dry/pink. 00:48 Reassessment: Patient appears in no apparent distress at this time. Patient and/or kj2 family updated on plan of care and expected duration. Pain level reassessed. Patient is alert, oriented x 3, equal unlabored respirations, skin warm/dry/pink. 01:59 Reassessment: Patient appears in no apparent distress at this time. Patient and/or kj2 family updated on plan of care and expected duration. Pain level reassessed. Patient is alert, oriented x 3, equal unlabored respirations, skin warm/dry/pink. [facility]EDDY Harris notified me that the bed is not available at this time and will call me back shortly. Charge nurse notified. Vital Signs: 12/26 14:40 BP 106 / 84; Pulse 106; Resp 19; Temp 98.6; Pulse Ox 99% ; Weight 42.18 kg; Height 5 cm10 ft. 8 in. ; Pain 8/10; 15:01 BP 101 / 69; Pulse 81; Resp 17; Pulse Ox 99% on R/A; rs5 16:48 BP 110 / 74; Pulse 84; Resp 17; Pulse Ox 99% on R/A; rs5 19:15 BP 104 / 69; Pulse 77; Resp 18; Temp 98; Pulse Ox 100% on R/A; kj2 21:10 BP 98 / 72; Pulse 73; Resp 18; Pulse Ox 100% on R/A; kj2 22:46 BP 99 / 64; Pulse 92; Resp 16; Pulse Ox 100% on R/A; kj2 12/27 00:13 BP 100 / 71; Pulse 75; Pulse Ox 100% on R/A; kj2 00:48 BP 100 / 71; Pulse 84; Resp 18; Pulse Ox 100% on R/A; kj2 02:45 BP 100 / 69; Pulse 79; Resp 18; Temp 98; Pulse Ox 100% on R/A; kj2 12/26 14:40 Body Mass Index 14.14 (42.18 kg, 172.72 cm) cm10 12/26 14:40 Pain Scale: Adult cm10 ED Course: 12/26 14:34 Patient arrived in ED. ra3 14:36 [facility] sb4 14:36 Constanza Quintana MD is Attending Physician. sb4 14:41 Triage completed. cm10 14:43 Arm band placed on Patient placed in an exam room, on a stretcher. cm10 14:45 Patient has correct armband on for positive identification. Placed in gown. Bed in low rs5 position. Call light in reach. Side rails up X2. 14:45 No provider procedures requiring assistance completed. rs5 15:06 Сергей Aldana, FREDDY is Primary Nurse. rs5 15:25 First set of blood cultures drawn by az. cc6 15:30 Inserted saline lock: 20 gauge in right antecubital area, using aseptic technique. cc6 Blood collected. Flushed with 10 mL NS. 16:02 Notified Nurse Practitioner and/or Physician Tank Cleaner of a critical lab result(s), K me1 2.6 and lactate 5.7. 16:03 Radiology exam delayed due to test not completed at this time. nj 17:37 CT Abd/Pelvis - Without Contrast In Process Unspecified. EDMS 19:15 Report received from FREDDY Rushing. kj2 19:54 Abdomen Limited US In Process Unspecified. EDMS 19:56 Hepatitis Panel Sent. kj2 20:08 Attending Physician role handed off by Constanza Quintana MD sp4 20:08 Edmundo Smalls MD is Attending Physician. sp4 20:59 Initiated transfer with Addi at [facility]. rv1 21:24 Doc to Doc with Hospitalist at [facility]. rv1 22:15 Doc to Doc with General Surgeon at [facility]. rv1 22:58 Win at the transfer center called to update that he will be handing the case over to rv1 Mellisa and that we are waiting for a bed to be cleaned. 12/27 00:06 Spoke to Vimal at the Transfer Center, bed is still not ready. rv1 02:50 Provided Education on: disease process. kj2 02:51 Patient transferred, IV remains in place. kj2 Administered Medications: 12/26 14:55 Drug: Ondansetron IVP 4 mg IVP once; over 2 minutes Route: IVP; Site: right antecubital;rs5 15:22 Follow up: Response: No adverse reaction; Nausea is decreased rs5 15:44 Drug: NS 0.9% IV 1000 ml IV at 1 bolus Per protocol; 1000 mL bolus Route: IV; Rate: 1 rs5 bolus; Site: right antecubital; 16:56 Follow up: Response: No adverse reaction; IV Status: Completed infusion rs5 15:44 Drug: fentaNYL (PF) IVP 25 mcg IVP once Route: IVP; Site: right antecubital; rs5 16:01 Follow up: Response: No adverse reaction; Pain is decreased rs5 17:04 Drug: fentaNYL (PF) IVP 25 mcg IVP once Route: IVP; Site: right antecubital; rs5 19:14 Follow up: Response: No adverse reaction kj2 17:05 Drug: NS 0.9% IV 1000 ml IV at 1 bolus Per protocol; 1000 mL bolus Route: IV; Rate: 1 rs5 bolus; Site: right antecubital; 18:12 Drug: morphine IVP or IV 4 mg IVP once over 4 mins Route: IVP; Infused Over: 4 mins; rs5 Site: right antecubital; 19:14 Follow up: Response: No adverse reaction; Pain is decreased kj2 19:56 Drug: Rocephin IV 1 grams IV at calculated rate once; Given slow IV push per pharmacy kj2 instructions Route: IV; Rate: calculated rate; Site: right antecubital; 19:56 Drug: Potassium PO Effervescent Tablet 50 mEq PO once; dissolve in 4 ounces of water or kj2 juice Route: PO; 22:45 Follow up: Response: No adverse reaction kj2 22:23 Drug: Albumin IVPB 25 grams 100 ml IVPB once; (Note: Albumin 25% concentration) Volume: kj2 100 ml; Route: IVPB; Site: right antecubital; 22:44 Follow up: Response: No adverse reaction kj2 22:23 Drug: Albumin IVPB 25 grams 100 ml IVPB once; (Note: Albumin 25% concentration) Volume: kj2 100 ml; Route: IVPB; Site: right antecubital; 22:24 Drug: morphine IVP or IV 4 mg IVP once over 4 mins Route: IVP; Infused Over: 4 mins; kj2 Site: right antecubital; 22:45 Follow up: Response: No adverse reaction; Pain is decreased kj2 22:24 Drug: metoCLOPramide IVP 10 mg IVP once; over 1 to 2 minutes Route: IVP; Site: right kj2 antecubital; 22:44 Follow up: Response: No adverse reaction kj2 22:43 Drug: metroNIDAZOLE IVPB 500 mg 100 ml IVPB at 200 ml/hr once over 30 mins Volume: 100 kj2 ml; Route: IVPB; Rate: 200 ml/hr; Infused Over: 30 mins; Site: right antecubital; 23:32 Not Given (Physician Discretion): ns 0.45 % with kcl40 meq/l 1000 ml IV at 100 ml/hr ss once 12/27 00:00 Drug: NS 0.9% with KCl IV 20 mEq/L 1000 ml IV at 100 ml/hr continuous Route: IV; Rate: kj2 100 ml/hr; Site: right antecubital; 00:49 Drug: morphine IVP or IV 2 mg IVP once over 4 mins Route: IVP; Infused Over: 4 mins; kj2 Site: right antecubital; 02:33 Follow up: Response: No adverse reaction kj2 02:39 Follow up: Response: No adverse reaction; Pain is decreased kj2 02:50 Drug: morphine IVP or IV 4 mg IVP once over 4 mins Route: IVP; Infused Over: 4 mins; kj2 Site: right antecubital; 07:31 Follow up: Response: No adverse reaction; Medication Administered at Departure kj2 Medication: 12/26 16:56 VIS not applicable for this client. rs5 Outcome: 22:35 ER care complete, transfer ordered by . sp4 12/27 02:50 Transferred by ground EMS [place] [facility]j2 Condition: stable Instructed on the need for transfer, Demonstrated understanding of 02:52 Patient left the ED. kj2 Signatures: Dispatcher [employer] EDMS Joe Brown Sophia, TESSIE PAGenna sb4 Bing Caicedo rv1 Сергей Aldana, RN RN rs5 Edmundo Smalls MD MD sp4 Eunice Lopez RN RN cm10 Sasha Meier RN RN me1 Sherry Mcdermott ra3 Sanaz Brown RN RN kj2 Dary Frank cc6 Carola Flynn RN ss Corrections: (The following items were deleted from the chart) 12/26 17:06 16:48 Reassessment: No changes from previously documented assessment. rs5 rs5 12/27 00:02 12/26 22:15 Doc to Doc with Hospitalist at [facility] rv1 rv1
[2023-12-27] MEDS ORDERED: NS KCL 20MEQ 1,000 ML IV ONE (23:50)
[2023-12-28] MEDS ORDERED: ALBUMIN HUMAN 25% 100 ML IV ONE (00:02)
[2023-12-28] MEDS ORDERED: MORPHINE 2 MG/ML SYR ONE (00:43)
[2023-12-28] MEDS ORDERED: MORPHINE 4 MG/ML SYR ONE (02:46)
[2023-12-28 03:18] VITALS: TEMP 98; O2SAT 100
[2023-12-28 03:22] VITALS: BP 100/71
== END 2023-12-28 02:52 | disposition short-term general hospital (02) ==
LOC: ER 14:31
DX: K72.90 Hepatic failure, unspecified without coma (principal); R18.8 Other ascites; E80.6 Other disorders of bilirubin metabolism; E87.6 Hypokalemia; K81.0 Acute cholecystitis; K82.8 Other specified diseases of gallbladder
CPT/HCPCS: 87040 ×2; 87088; 85025; 81001; 87086; 36415; 81025; 85610; 83605 ×2; 85730; 83690; 80053; 80074; 74176; 76705; J2765; J3010 ×2; J2270; J2405; P9047 ×2; J7030 ×2; J0696; J3480; 87077; 87186; 96361; 96374; 96375; 99285

== ENCOUNTER 2025-01-05 21:22 | Emergency (ER) | payer OTHER ==
[2025-01-05] MEDS ORDERED: NA CHLORIDE 0.9% 1,000 ML ONE (22:01)
[2025-01-05 22:07] LABS: Absolute Lymphocytes (CBC) 2.0 K/uL (0.7-4.9); Hematocrit 33.7 % (36.0-45.0); Hemoglobin 12.0 g/dL (12.0-15.0); MCH 31.6 pg (27.0-35.0); MCHC 35.6 g/dL (32.0-36.0); MCV 88.7 fL (80-100); MPV 7.6 fL (7.6-11.3); Nucleated RBC Absolute Count 0.0 (0-0); Nucleated Red Blood Cells % 0.2 % (0-0); RBC Red Blood Cell Count 3.80 M/uL (3.86-4.86); White Blood Count 4.90 thou/uL (4.3-10.9)
[2025-01-05 22:17] LABS: PT Prothrombin Time 13.4 SECONDS (10-13.0); Protime INR 1.19
[2025-01-05] MEDS ORDERED: KETOROLAC 30 MG/ML INJ ONE (22:24)
[2025-01-05 22:30] LABS: ALT/SGPT 56 U/L (13-56); AST/SGOT 47 U/L (15-37); Albumin 3.6 g/dL (3.4-5.0); Albumin/Globulin Ratio 1.2 (1.1-1.8); Alkaline Phosphatase 93 U/L (45-117); Anion Gap 9.1 mEq/L (5.0-15.0); BUN Blood Urea Nitrogen 13 mg/dL (7-18); Globulin 2.9 g/dL (2.3-3.5); Glucose Level 139 mg/dL (74-106); Magnesium 2.1 mg/dL (1.6-2.4); Potassium 3.1 mEq/L (3.5-5.1)
[2025-01-05 22:40] LABS: Bilirubin Indirect, Calculated 0.1 mg/dL (0.2-0.8); Troponin High Sensitivity < 3.0 pg/mL (<58.9)
--- NOTE | 2025-01-05 22:50 | RAD REPORT ---
Procedure: Chest Single View HISTORY: Syncope COMPARISON: 2023 FINDINGS: The lungs appear clear of acute infiltrate. No significant pleural effusion noted. The heart is normal size. IMPRESSION: No acute abnormality is displayed.
[2025-01-05] MEDS ORDERED: POTASSIUM 25 MEQ EFFERV TAB ONE (23:29)
[2025-01-05] MEDS ORDERED: LIDOCAINE 2% MPF 5 ML VIAL ONE (23:47)
--- NOTE | 2025-01-06 00:52 | RAD REPORT ---
PROCEDURE: CT Head, Maxillofacial and Cervical Spine Without Intravenous Contrast CLINICAL INDICATION: The patient is 24 years old and is Female; chin laceration from fall TECHNIQUE: Axial computed tomography images of the head/brain, face and cervical spine without intravenous contr ast. Sagittal and coronal reformatted images were created and reviewed. This CT exam was performed using one or more of the following dose reduction techniques: automated exposure control, adjustment of the mA and/or kV according to patient size, and/or use of iterative reconstruction technique. DLP: 1364 mGy*cm COMPARISON: None. FINDINGS: BRAIN: Unremarkable. No hemorrhage. No significant white matter disease. No edema. VENTRICLES: Unremarkable. No ventriculomegaly. SKULL: No acute fracture. SINUSES: Unremarkable as visualized. No acute sinusitis. MASTOID AIR CELLS: Unremarkable as visualized. No mastoid effusion. VERTEBRAE: Straightening of the cervical lordosis. No acute fracture. Normal alignment. DISCS/SPINAL CANAL/NEURAL FORAMINA: No acute findings. No spinal canal stenosis. SOFT TISSUES: Mild submental soft tissue swelling. IMPRESSION: 1. Mild submental soft tissue swelling. 2. Straightening of the cervical lordosis. Findings may be positional or due to muscle spasm. 3. No acute intracranial abnormality. 4. No acute cervical spine fracture or subluxation. 5. No acute facial fracture. Electronically signed by: Selvin Banks DO 01/05/2025 11:54 PM CDT RP 9 Due to temporary technical issues with the PACS/[employer] reporting system, reports are being bela d by the in-house radiologist without review as a courtesy to ensure prompt reporting the interpreting radiologist is fully responsible for the content of the report. Transcribed Date/Time: 01/06/2025 12:52 AM
--- NOTE | 2025-01-06 00:53 | RAD REPORT ---
PROCEDURE: CT Head, Maxillofacial and Cervical Spine Without Intravenous Contrast CLINICAL INDICATION: The patient is 24 years old and is Female; chin laceration from fall TECHNIQUE: Axial computed tomography images of the head/brain, face and cervical spine without intravenous contr ast. Sagittal and coronal reformatted images were created and reviewed. This CT exam was performed using one or more of the following dose reduction techniques: automated exposure control, adjustment of the mA and/or kV according to patient size, and/or use of iterative reconstruction technique. DLP: 1364 mGy*cm COMPARISON: None. FINDINGS: BRAIN: Unremarkable. No hemorrhage. No significant white matter disease. No edema. VENTRICLES: Unremarkable. No ventriculomegaly. SKULL: No acute fracture. SINUSES: Unremarkable as visualized. No acute sinusitis. MASTOID AIR CELLS: Unremarkable as visualized. No mastoid effusion. VERTEBRAE: Straightening of the cervical lordosis. No acute fracture. Normal alignment. DISCS/SPINAL CANAL/NEURAL FORAMINA: No acute findings. No spinal canal stenosis. SOFT TISSUES: Mild submental soft tissue swelling. IMPRESSION: 1. Mild submental soft tissue swelling. 2. Straightening of the cervical lordosis. Findings may be positional or due to muscle spasm. 3. No acute intracranial abnormality. 4. No acute cervical spine fracture or subluxation. 5. No acute facial fracture. Electronically signed by: Selvin Banks DO 01/05/2025 11:54 PM CDT RP 9 Due to temporary technical issues with the PACS/[employer] reporting system, reports are being bela d by the in-house radiologist without review as a courtesy to ensure prompt reporting the interpreting radiologist is fully responsible for the content of the report. Transcribed Date/Time: 01/06/2025 12:53 AM
--- NOTE | 2025-01-06 00:59 | ER ---
Nurse's Notes [facility] Name: Gin Corbett Age: 24 yrs Sex: Female : 2000 Arrival Date: 01/05/2025 Time: 21:22 Bed 17 Private MD: Diagnosis: Syncope Near;Laceration without foreign body of other part of head, initial encounter Presentation: 01/05 21:31 Chief complaint: Patient states: got up from sitting and was walking, had a near me1 syncopal episode and fell, hitting her chin on the floor. Laceration noted to chin. Pain 7/10. Coronavirus screen: Vaccine status: Patient reports receiving the 2nd dose of the covid vaccine. Ebola Screen: No symptoms or risks identified at this time. Initial Sepsis Screen: Does the patient meet any 2 criteria? No. Patient's initial sepsis screen is negative. Does the patient have a suspected source of infection? No. Patient's initial sepsis screen is negative. Risk Assessment: Do you want to hurt yourself or someone else? Patient reports no desire to harm self or others. Onset of symptoms was January 05, 2025 at 21:00. 21:31 Method Of Arrival: Carried me1 21:31 Acuity: REYNALDO 3 me1 01/06 01:23 Complicating Factors: There are no complicating factors for this patient. ICT MANAGERS: 01:22 unknown Historical: - Allergies: 01/05 21:33 Iodine; me1 - PMHx: 21:33 elevated liver enzymes; Cirrhosis of liver; Pancreatitis; me1 21:33 anorexia; me1 - PSHx: 21:33 None; me1 - Infectious Disease History:: Denies. - Social history:: Smoking status: Reported history of juuling and/or vaping. Screenin:05 [facility] ED Fall Risk Assessment (Adult) History of falling in the last 3 months, bm8 including since admission Yes- physiologic fall (2 pts) Confusion or Disorientation No (0 pts) Intoxicated or Sedated No (0 pts) Impaired Gait No (0 pts) Mobility Assist Device Used No (0 pt) Altered Elimination No (0 pt) Score/Fall Risk Level 0 - 2 = Low Risk Oriented to surroundings, Maintained a safe environment, Educated pt \T\ family on fall prevention, incl call for assistance when getting out of bed, Assessed \T\ reinforced patient's understanding of fall precautions, Hourly rounding (assess needs \T\ fall precautionary measures) done, Used ambulatory aids as needed (educated on \T\ assisted with), Used gait belt as appropriate. Abuse screen: Denies threats or abuse. Nutritional screening: No deficits noted. Tuberculosis screening: No symptoms or risk factors identified. Assessment: 23:05 General: Appears in no apparent distress. comfortable, Behavior is calm, cooperative, bm8 appropriate for age. Pain: Complains of pain in chin Pain currently is 6 out of 10 on a pain scale. Neuro: No deficits noted. Level of Consciousness is awake, alert, obeys commands, Oriented to person, place, time, situation, Appropriate for age. Cardiovascular: Denies chest pain, Capillary refill < 3 seconds in bilateral fingers Patient's skin is warm and dry. Respiratory: Airway is patent Respiratory effort is even, unlabored, Respiratory pattern is regular, symmetrical. GI: No signs and/or symptoms were reported involving the gastrointestinal system. : No signs and/or symptoms were reported regarding the genitourinary system. EENT: No signs and/or symptoms were reported regarding the EENT system. Derm: Wound noted chin Wound is 2 in laceration on underside of chin. Musculoskeletal: Circulation, motion, and sensation intact. Capillary refill Range of motion: intact in all extremities, Reports pain in postiorer neck and chin. 01/06 00:00 Injury Description: Laceration is clean, well approximated. zm 01:16 Reassessment: Patient appears in no apparent distress at this time. Patient and/or zm family updated on plan of care and expected duration. Pain level reassessed. Patient is alert, oriented x 3, equal unlabored respirations, skin warm/dry/pink. Patient denies pain at this time. Patient states feeling better. Vital Signs: 01/05 21:31 BP 91 / 54; Pulse 70; Resp 16; Temp 98.2; Pulse Ox 100% ; Weight 63.5 kg; Height 5 ft. me1 8 in. ; Pain 7/10; 23:05 BP 93 / 60; Pulse 76; Resp 16; Temp 98.2; Pulse Ox 100% ; Pain 7/10; bm8 23:35 BP 90 / 61 Supine; Pulse 83; Resp 18; Pulse Ox 99% on R/A; zm 23:37 BP 94 / 61 Sitting; Pulse 73; Resp 13; Pulse Ox 99% on R/A; zm 23:39 BP 103 / 69 Standing; Pulse 89; Resp 12; Pulse Ox 100% on R/A; zm 01/06 01:16 BP 96 / 55; Pulse 79; Resp 12; Temp 98.4; Pulse Ox 98% on R/A; zm 01/05 21:31 Body Mass Index 21.29 (63.50 kg, 172.72 cm) me1 01/05 21:31 Pain Scale: Adult me1 23:05 Pain Scale: Adult bm8 Tomasa Coma Score: 01/05 23:05 Eye Response: spontaneous(4). Motor Response: obeys commands(6). Verbal Response: bm8 oriented(5). Total: 15. 01/06 01:16 Eye Response: spontaneous(4). Motor Response: obeys commands(6). Verbal Response: zm oriented(5). Total: 15. ED Course: 01/05 21:30 Patient arrived in ED. me1 21:33 Triage completed. me1 21:33 Karthik Parr PA-C is PHCP. cp 21:33 Edmundo Smalls MD is Attending Physician. cp 21:33 Arm band placed on Patient placed in an exam room. me1 21:41 No provider procedures requiring assistance completed. Initial lab(s) drawn, by me, EKG bm8 done, by ED staff, reviewed by Karthik Parr PA-C. Inserted saline lock: 20 gauge in right antecubital area, using aseptic technique. Blood collected. Flushed with 10 mL NS. Patient maintains SpO2 saturation greater than 95% on room air. 21:53 Elly Lopez, RN is Primary Nurse. zm 22:17 XRAY Chest (1 view) In Process Unspecified. EDMS 22:59 CT Head C Spine In Process Unspecified. EDMS 22:59 CT Facial Bones W/O Con In Process Unspecified. EDMS 23:05 Patient has correct armband on for positive identification. Bed in low position. Call bm8 light in reach. Side rails up X 1. Adult w/ patient. Client placed on continuous cardiac and pulse oximetry monitoring. NIBP monitoring applied. director industrial on. Pulse ox on. NIBP on. Door closed. Noise minimized. Warm blanket given. Pillow given. Verbal reassurance given. Head of bed elevated. 01/06 00:57 Isra Arteaga MD is Referral Physician. aga 01:16 Provided Education on: post ER care. carmelita 01:16 Assist provider with laceration repair on chin using sutures. Set up tray. Performed by carmelita Parr PA-C Dressed with 4X4s, Patient tolerated well. IV discontinued, intact, bleeding controlled, No redness/swelling at site. Pressure dressing applied. Administered Medications: 01/05 22:09 Drug: NS 0.9% IV 1000 ml IV at 1000 ml once; to be given as a bolus over 60 minutes Route: IV; Rate: 1000 ml; Site: right antecubital; 01/06 01:28 Follow up: IV Status: Completed infusion; IV Intake: 1000ml 01:28 Follow up: Response: No adverse reaction 01/05 22:57 Drug: Ketorolac IVP 15 mg IVP once Route: IVP; Site: right antecubital; 8 01/06 01:27 Follow up: Response: No adverse reaction 01/05 23:42 Drug: Potassium PO Effervescent Tablet 50 mEq PO once; dissolve in 4 ounces of water or zm juice Route: PO; 01/06 01:27 Follow up: Response: No adverse reaction 01/05 23:54 Drug: Lidocaine Infiltration (2 %) 5 ml 5 ml Infiltration once; to bedside {Note: zm administered at bedside by physician.} Volume: 5 ml; Route: Infiltration; 23:56 Follow up: Response: No adverse reaction [facility] 01/06 01:08 Not Given (Physician Discretion): ns 0.9% 1000 ml IV at 1000 ml once; to be given as a zm bolus over 60 minutes. systolic >90 Medication: 01/05 23:05 VIS not applicable for this client. bm8 Intake: 01/06 01:28 IV: 1000ml; Total: 1000ml. Outcome: 00:59 Discharge ordered by . aga 01:16 Discharged to home ambulatory, with family, carmelita 01:16 Condition: stable 01:16 Discharge instructions given to patient, family, Instructed on discharge instructions, follow up and referral plans. safety practices, wound care, Demonstrated understanding of instructions, follow-up care, wound care, :28 Patient left the ED. Signatures: Dispatcher [employer] EDMS Karthik Parr PA-C PA-C cp Martinez, Zaina, RN RN Sahsa Meier RN RN sc1 Alf Mauro RN RN bm8 Corrections: (The following items were deleted from the chart) 01/05 21:34 21:33 PMHx: Anxiety; me1 me1
--- NOTE | 2025-01-06 01:00 | EDPHYS ---
Physician Documentation [facility] Name: Gin Corbett Age: 24 yrs Sex: Female : 2000 Arrival Date: 01/05/2025 Time: 21:22 Bed 17 Private MD: ED Physician Edmundo Smalls HPI: 01/05 21:45 This 24 yrs old Female presents to ER via Carried with complaints of Near Syncope, cp Laceration To Chin. 21:45 The patient has experienced near-syncope, almost passed out, felt dizzy, felt faint. cp 21:45 Onset: The symptoms/episode began/occurred just prior to arrival. Duration: This was a cp single episode. Context: occurred at home, occurred while the patient was walking, Just prior to the episode the patient experienced dizziness, weakness. Associated injury: Other: chin, laceration. 21:45 Current symptoms: jaw pain. 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 - Social history:: Smoking status: Reported history of juuling and/or vaping. ROS: 21:50 Constitutional: Negative for body aches, chills, fever, poor PO intake, cp 21:50 Eyes: Negative for injury, pain, redness, and discharge, cp 21:50 Cardiovascular: Negative for chest pain, 21:50 Respiratory: Negative for cough, shortness of breath, wheezing, 21:50 Abdomen/GI: Negative for abdominal pain, vomiting, diarrhea, constipation, 21:50 : Negative for vaginal bleeding, 21:50 Skin: Positive for laceration(s), of the chin, 21:50 Neuro: Positive for syncope, weakness, Negative for altered mental status, 21:50 All other systems are negative, Exam: 21:47 ECG was reviewed by the Attending Physician. cp 21:55 Constitutional: The patient appears in no acute distress, alert, awake, cp non-diaphoretic, non-toxic, well developed, well nourished, 21:55 Head/face: Noted is a laceration(s), that is linear, of the chin, swelling, that is cp mild, tenderness, that is moderate, 21:55 Eyes: Periorbital structures: appear normal, Pupils: equal, round, and reactive to light and accomodation, Extraocular movements: intact throughout, Conjunctiva: normal, no exudate, no injection, Sclera: no appreciated abnormality, Lids and lashes: appear normal, bilaterally, 21:55 ENT: External ear(s): are unremarkable, Nose: is normal, Mouth: Lips: moist, Oral mucosa: moist, Posterior pharynx: Airway: no evidence of obstruction, patent, 21:55 Neck: C-spine: vertebral tenderness, that is mild, crepitus, is not appreciated, 21:55 Chest/axilla: Inspection: normal, Palpation: is normal, no crepitus, no tenderness, 21:55 Cardiovascular: Rate: normal, Rhythm: regular, Edema: is not appreciated, JVD: is not appreciated, 21:55 Respiratory: the patient does not display signs of respiratory distress, Respirations: normal, no use of accessory muscles, no retractions, labored breathing, is not present, Breath sounds: are clear throughout, no decreased breath sounds, no stridor, no wheezing, 21:55 Abdomen/GI: Inspection: abdomen appears normal, Palpation: abdomen is soft and non-tender, in all quadrants, 21:55 Back: pain, is absent, ROM is normal, 21:55 Musculoskeletal/extremity: Exam is negative for decreased range of motion, deformity, injury, 21:55 Neuro: Orientation: to person, place \T\ time. Mentation: is normal, Cerebellar function: is grossly normal, Motor: moves all fours, strength is normal, Sensation: is normal, Vital Signs: 21:31 BP 91 / 54; Pulse 70; Resp 16; Temp 98.2; Pulse Ox 100% ; Weight 63.5 kg; Height 5 ft. me1 8 in. ; Pain 7/10; 23:05 BP 93 / 60; Pulse 76; Resp 16; Temp 98.2; Pulse Ox 100% ; Pain 7/10; bm8 23:35 BP 90 / 61 Supine; Pulse 83; Resp 18; Pulse Ox 99% on R/A; zm 23:37 BP 94 / 61 Sitting; Pulse 73; Resp 13; Pulse Ox 99% on R/A; 23:39 BP 103 / 69 Standing; Pulse 89; Resp 12; Pulse Ox 100% on R/A; 01/06 01:16 BP 96 / 55; Pulse 79; Resp 12; Temp 98.4; Pulse Ox 98% on R/A; 01/05 21:31 Body Mass Index 21.29 (63.50 kg, 172.72 cm) ut1 01/05 21:31 Pain Scale: Adult me1 23:05 Pain Scale: Adult bm8 Tomasa Coma Score: 01/05 23:05 Eye Response: spontaneous(4). Motor Response: obeys commands(6). Verbal Response: bm8 oriented(5). Total: 15. 01/06 01:16 Eye Response: spontaneous(4). Motor Response: obeys commands(6). Verbal Response: zm oriented(5). Total: 15. Laceration: 01:00 Wound Repair of 2.5cm ( 1.0in ) subcutaneous laceration to chin. Linear shaped.. Distal cp neuro/vascular/tendon intact. Anesthesia: Wound infiltrated with 5 mls of 2% lidocaine. Wound prep: Simple cleansing by me. Skin closed with 3 6-0 Prolene using interrupted sutures and sterile technique. Dressed with Bacitracin. Patient tolerated well. MDM: 01/05 21:33 Medical Screening Exam initiated 22:00 Differential Diagnosis: cardiac arrhythmia, drug effect, emotional response, GI bleed, cp , pseudo seizure, seizure, vasovagal episode. 01/06 00:59 Data reviewed: vital signs, nurses notes, lab test result(s), EKG, radiologic studies, cp CT scan, plain films, and as a result, I will discharge patient. 00:59 I considered the following discharge prescriptions or medication management in the emergency department Medications were administered in the Emergency Department. See JUN. 00:59 Counseling: I had a detailed discussion with the patient and/or guardian regarding the historical points, exam findings, and any diagnostic results supporting the discharge/admit diagnosis, lab results, radiology results, the need for outpatient follow up, a doctor of optometry, a family practitioner, to return to the emergency department if symptoms worsen or persist or if there are any questions or concerns that arise at home. Response to treatment: the patient's symptoms have mildly improved after treatment, and as a result, I will discharge patient. 01/05 21:49 Order name: Basic Metabolic Panel; Complete Time: 22:58 [facility] 01/05 22:58 Interpretation: Normal except: K 3.1; GLUC 139. 01/05 21:49 Order name: CBC with Diff; Complete Time: 22:14 [facility] 01/05 22:15 Interpretation: Normal except: RBC 3.80; HCT 33.7; EOSINOPHIL % 6.2. 01/05 21:49 Order name: LFT's; Complete Time: 22:58 [facility] 01/05 22:58 Interpretation: Normal except: AST 47; IBILI, CALC 0.1. 01/05 21:49 Order name: Magnesium; Complete Time: 22:58 [facility] 01/05 21:49 Order name: PT-INR; Complete Time: 22:33 [facility] 01/05 22:33 Interpretation: Normal except: PT 13.4. 01/05 21:49 Order name: Troponin HS; Complete Time: 22:58 [facility] 01/05 21:49 Order name: Test, Serum; Complete Time: 22:33 [facility] 01/05 21:49 Order name: XRAY Chest (1 view); Complete Time: 22:58 [facility] 01/05 22:35 Order name: CT Head C Spine 01/05 22:35 Order name: CT Facial Bones W/O Con 01/05 21:41 Order name: EKG - Nurse/Tech; Complete Time: 21:41 [facility] 01/05 21:49 Order name: Cardiac monitoring; Complete Time: 21:50 [facility] 01/05 21:49 Order name: IV Saline Lock; Complete Time: 21:50 [facility] 01/05 21:49 Order name: Labs collected and sent; Complete Time: 21:50 [facility] 01/05 21:49 Order name: O2 Per Protocol; Complete Time: 21:50 [facility] 01/05 21:49 Order name: O2 Sat Monitoring; Complete Time: 21:50 [facility] 01/05 23:21 Order name: Orthostatics; Complete Time: 23:42 01/05 23:44 Order name: Dressing - Wound; Complete Time: 23:53 01/05 23:44 Order name: Gloves, Sterile; Complete Time: 23:53 01/05 23:44 Order name: Setup Suture Tray; Complete Time: 23:53 cp EC/26 21:47 Rate is 63 beats/min. Rhythm is regular. [place] interval is normal. QRS interval is normal. cp QT interval is normal. T waves are Inverted in leads aVL, aVR. Interpreted by me. Reviewed by me. Administered Medications: 22:09 Drug: NS 0.9% IV 1000 ml IV at 1000 ml once; to be given as a bolus over 60 minutes zm Route: IV; Rate: 1000 ml; Site: right antecubital; 01/06 01:28 Follow up: IV Status: Completed infusion; IV Intake: 1000ml 01:28 Follow up: Response: No adverse reaction 01/05 22:57 Drug: Ketorolac IVP 15 mg IVP once Route: IVP; Site: right antecubital; [facility] 01/06 01:27 Follow up: Response: No adverse reaction 01/05 23:42 Drug: Potassium PO Effervescent Tablet 50 mEq PO once; dissolve in 4 ounces of water or zm juice Route: PO; 01/06 01:27 Follow up: Response: No adverse reaction 01/05 23:54 Drug: Lidocaine Infiltration (2 %) 5 ml 5 ml Infiltration once; to bedside {Note: zm administered at bedside by physician.} Volume: 5 ml; Route: Infiltration; 23:56 Follow up: Response: No adverse reaction [facility] 01/06 01:08 Not Given (Physician Discretion): ns 0.9% 1000 ml IV at 1000 ml once; to be given as a zm bolus over 60 minutes. systolic >90 Disposition: 05:03 Chart complete. cp 21:52 Co-signature as Attending Physician, Edmundo Smalls MD I agree with the assessment sp4 and plan of care. I reviewed the patient's care provided by the Advanced Practice Provider and agree with the diagnosis and treatment plan. Disposition Summary: 01/06/25 00:59 Discharge Ordered Notes: Location: Home cp Problem: new cp Symptoms: have improved cp Condition: Stable cp Diagnosis - Syncope Near cp - Laceration without foreign body of other part of head, initial encounter cp Followup: cp - With: Isra Arteaga MD - When: 5 - 6 days - Reason: Recheck today's complaints Discharge Instructions: - Discharge Summary Sheet cp - Facial Laceration cp - Near-Syncope cp - Sutured Wound Care cp Forms: - Medication Reconciliation Form cp - Antibiotic Education cp - Prescription Opioid Use cp - Patient Portal Instructions cp - Leadership Thank You Letter cp Signatures: Dispatcher [employer] EDKarthik Sanchez PA-C PA-C cp Martinez, Zaina, RN RN Edmundo Smalls MD MD sp4 Sasha Meier RN RN me1 Alf Mauro RN RN bm8 Corrections: (The following items were deleted from the chart) 01/05 21:34 21:33 PMHx: Anxiety; me1 me1 21:50 21:50 BASIC METABOLIC PANEL+C.LAB.BRZ ordered. EDMS EDMS 21:50 21:50 CBC+H.LAB.BRZ ordered. EDMS EDMS 21:50 21:50 HEPATIC FUNCTION+C.LAB.BRZ ordered. EDMS EDMS 21:50 21:50 MAGNESIUM+C.LAB.BRZ ordered. EDMS EDMS 21:50 21:50 PROTIME (+INR)+COAG.LAB.BRZ ordered. EDMS EDMS 21:50 21:50 Troponin High Sensitivity+C.LAB.BRZ ordered. EDMS EDMS 21:50 21:50 TEST, SERUM+SC.LAB.BRZ ordered. EDMS EDMS 21:50 21:50 Chest Single View+RAD.RAD.BRZ ordered. EDMS EDMS
[2025-01-06 03:23] VITALS: BP 96/55; TEMP 98.4; O2SAT 98
== END 2025-01-06 01:28 | disposition home or self-care (01) ==
LOC: ER 21:22
PROC: 0JQ13ZZ Repair Face Subcutaneous Tissue and Fascia, Percutaneous Approach (ICD-10-PCS; principal; 2025-01-06)
DX: R55 Syncope and collapse (principal); S01.81XA Laceration without foreign body of other part of head, initial encounter; W18.39XA Other fall on same level, initial encounter; Y93.9 Activity, unspecified; Y92.9 Unspecified place or not applicable
CPT/HCPCS: 96361; 93005; 85025; 80048; 36415; 83735; 84703; 85610; 80076; 84484; 70450; 72125; 70486; 76377; 71045; 96374; 99285; 12011 ×2; J2003; J7030; J1885